=== PATIENT | male | born 1990 | race African-American/Black ===

== ENCOUNTER 2023-04-25 12:18 | Emergency (ER) | payer MEDICAID ==
[~2023-04-25] VITALS: Ht 172.7 cm; Wt 77.3 kg
[2023-04-25 12:29] VITALS: TEMP 99.7
[2023-04-25] MEDS ORDERED: IBUPROFEN 600 MG TABLET PO ONE (13:30)
[2023-04-25] MEDS ORDERED: DEXAMETHASONE SOD PHOS 4 MG/ML 5 ML VIAL IM ONE (13:30)
[2023-04-25 13:46] LABS: COVID AG,FIA SOURCE NASOPHARYNGEAL
[2023-04-25 14:02] LABS: RAPID GROUP A STREP POSITIVE (NEGATIVE)
[2023-04-25 14:09] LABS: INFLUENZA TYPE A NEGATIVE FOR TYPE A (NEGATIVE); INFLUENZA TYPE B NEGATIVE FOR TYPE B (NEGATIVE)
[2023-04-25] MEDS ORDERED: IBUP-1492 PO (14:13)
[2023-04-25] MEDS ORDERED: PENICILLIN G BENZATHINE LA 1,200,000 UNITS/2 ML SYRINGE IM ONE (14:15)
[2023-04-25 15:55] VITALS: BP 129/73; PULSE 98; RESP 18
== END 2023-04-25 16:22 | disposition home or self-care (01) ==
LOC: EMS 12:22
DX: J02.0 Streptococcal pharyngitis (principal); Z98.890 Other specified postprocedural states; Z20.822 Contact with and (suspected) exposure to COVID-19
CPT/HCPCS: 99284; 87426; 87430; 87804; 96372; J0561; J1100

== ENCOUNTER 2025-01-14 09:00 | Emergency (ER) | payer OTHER ==
[~2025-01-14] VITALS: Ht 175.3 cm; Wt 80.0 kg
[~2025-01-14 09:00] MED LIST: IBUP-1492 PO
[2025-01-14 09:10] VITALS: BP 117/83; PULSE 68; RESP 18; TEMP 97.7; O2SAT 99
[2025-01-14 09:19] LABS: COVID AG,FIA SOURCE NASAL SWAB
[2025-01-14 09:31] LABS: RAPID GROUP A STREP NEGATIVE (NEGATIVE)
[2025-01-14 09:38] LABS: INFLUENZA TYPE A NEGATIVE FOR TYPE A (NEGATIVE); INFLUENZA TYPE B NEGATIVE FOR TYPE B (NEGATIVE); SARS-COV2 (COVID) ANTIGEN,FIA Negative (Negative)
[2025-01-14] MEDS: OXYMETAZOLINE HCL 0.05% 15 ML NASAL SPRAY NASAL ONE (10:06)
== END 2025-01-14 10:12 | disposition home or self-care (01) ==
LOC: EMS 09:02
DX: J02.8 Acute pharyngitis due to other specified organisms (principal); J06.9 Acute upper respiratory infection, unspecified; B97.89 Other viral agents as the cause of diseases classified elsewhere; Z20.822 Contact with and (suspected) exposure to COVID-19
CPT/HCPCS: 87430; 87804; 99283

== ENCOUNTER 2025-04-16 08:42 | Emergency (ER) | payer SELFPAY ==
[~2025-04-16] VITALS: Ht 180.3 cm; Wt 75.0 kg
[2025-04-16] MEDS ORDERED: HYDR-4062 PO (09:33)
[2025-04-16] MEDS ORDERED: PENI500T2 PO (09:33)
[2025-04-16 09:50] VITALS: BP 139/92; PULSE 62; RESP 19; O2SAT 95
== END 2025-04-16 09:53 | disposition home or self-care (01) ==
LOC: EMS 08:42
DX: K02.9 Dental caries, unspecified (principal); K08.89 Other specified disorders of teeth and supporting structures
CPT/HCPCS: 99283; Z7502